=== PATIENT | male | born 1950 | race Caucasian/White ===

== ENCOUNTER 2022-11-05 15:56 | Inpatient (IN) ==
[2022-11-05] MEDS ORDERED: SODIUM CHLORIDE 0.9% 1,000 ML IV STA (16:55)
[2022-11-05] MEDS ORDERED: ONDANSETRON 4 MG/2 ML VIAL IV ONE (16:55)
[2022-11-05] MEDS ORDERED: MORPHINE 2 MG/1 ML SYRINGE IV ONE (16:55)
[2022-11-05] MEDS ORDERED: ALBUTEROL/IPRATROPIUM 3 ML NEB RESP TX STA (16:55)
[2022-11-05 17:14] LABS: Basophils # 0.1 10*3/uL (0.0-0.2); Basophils % 0.3 % (0.0-0.8); Eosinophils % 0.1 % (0.00-10.9); Hematocrit 34.2 VOL% (42.0-52.0); Hemoglobin 11.1 GM/DL (14.0-18.0); Immature Granulocytes % 1.9 %; Immature Granulocytes Absolute 0.38 #; Mean Corpuscular HGB Conc 32.5 GM/DL (32-36); Mean Corpuscular Volume 98.3 FL (87-102); Mean Platelet Volume 9.7 FL (9.6-12.0); Monocytes # 2.6 10*3/uL (0.11-0.8); Monocytes % 12.5 % (1.7-12.7); Neutrophils % 80.2 % (38.7-73.9); Platelet Count 412 T/CUMM (130-400); Red Blood Count 3.48 MC/CUMM (3.8-5.5); Red Cell Distribution Width 12.3 % (9.3-17.3); White Blood Count 20.4 T/CUMM (4-12)
[2022-11-05 17:19] LABS: Arterial Base Excess iSTAT 2 MMOL/L (-2.5-2.5); Arterial Bicarbonate iSTAT 27.8 MMOL/L (20-26); Arterial O2 Saturation iSTAT 90 % (95-100); Arterial PCO2 iSTAT 48 MM HG (35-48); Arterial PO2 iSTAT 61 MM HG (80-95); Arterial Total CO2 iSTAT 29 MMO/L (23-27); Arterial pH iSTAT 7.374 (7.35-7.45)
[2022-11-05 17:32] LABS: Alanine Aminotransferase 26 U/L (16-61); Albumin 2.7 G/DL (3.4-5.0); Alkaline Phosphatase 76 U/L (45-117); Aspartate Amino Transferase 34 U/L (0-37); Bilirubin,Total < 0.39 MG/DL (0.20-1.00); Blood Urea Nitrogen 23 MG/DL (7-18); Calcium 8.8 MG/DL (8.5-10.1); Carbon Dioxide 29 MMOL/L (21-32); Chloride 104 MMOL/L (98-107); Glucose 133 MG/DL (74-106); Potassium 4.3 MMOL/L (3.5-5.1); Sodium 136 MMOL/L (136-145); Total Protein 6.7 G/DL (6.4-8.2)
[2022-11-05 17:37] LABS: PT Patient Result 10.9 SECS (10.1-12.1)
[2022-11-05 18:01] LABS: Band Neutrophils 1 % (0-10); Lymphocytes 5 % (20-55); Total Cells Counted 100
[2022-11-05 18:02] LABS: Platelet Estimate Increased; Polychromasia Slight
[2022-11-05] MEDS ORDERED: cefTRIAXone 1,000 MG in SODIUM CHLORIDE 0.9% 100 ML IV STA (18:52)
[2022-11-05] MEDS ORDERED: AZITHROMYCIN INJ 500 MG in SODIUM CHLORIDE 0.9% 250 ML IV STA (18:52)
[2022-11-05] MEDS ORDERED: methylPREDNISolone SOD SUC 125 MG/2 ML VIAL IV STA (18:52)
[2022-11-05] MEDS: HEPARIN 5,000 UNIT/1 ML VIAL SUBCUT SCH (21:00)
[2022-11-05] MEDS: PANTOPRAZOLE 40 MG VIAL IV SCH (21:45)
[2022-11-06] MEDS: ALBUTEROL/IPRATROPIUM 3 ML NEB RESP TX SCH ×4 (00:55→19:05)
[2022-11-06] MEDS: methylPREDNISolone SOD SUC 40 MG/1 ML VIAL IV SCH ×4 (03:20→20:44)
[2022-11-06 05:16] LABS: Basophils % 0.3 % (0.0-0.8); Hematocrit 31.4 VOL% (42.0-52.0); Hemoglobin 10.1 GM/DL (14.0-18.0); Immature Granulocytes % 1.3 %; Immature Granulocytes Absolute 0.19 #; Lymphocytes # 0.4 10*3/uL (1.4-4.0); Lymphocytes % 2.8 % (21.2-54.2); Mean Corpuscular HGB Conc 32.2 GM/DL (32-36); Mean Corpuscular Volume 99.1 FL (87-102); Mean Platelet Volume 9.7 FL (9.6-12.0); Monocytes # 0.3 10*3/uL (0.11-0.8); Monocytes % 1.8 % (1.7-12.7); Neutrophils % 93.8 % (38.7-73.9); Platelet Count 381 T/CUMM (130-400); Red Blood Count 3.17 MC/CUMM (3.8-5.5); Red Cell Distribution Width 12.3 % (9.3-17.3); White Blood Count 14.2 T/CUMM (4-12)
[2022-11-06 05:35] LABS: Calcium 9.3 MG/DL (8.5-10.1); Osmolality,Calculated 286.3 MOS/KG (273-304); Potassium 4.6 MMOL/L (3.5-5.1)
[2022-11-06 05:58] LABS: Band Neutrophils 1 % (0-10); Lymphocytes 1 % (20-55); Platelet Estimate Adequate; Total Cells Counted 100
[2022-11-06] MEDS: HEPARIN 5,000 UNIT/1 ML VIAL SUBCUT SCH ×3 (06:57→20:46)
[2022-11-06] MEDS: SERTRALINE 50 MG TABLET PO SCH (08:59)
[2022-11-06] MEDS: PANTOPRAZOLE 40 MG VIAL IV SCH ×2 (08:59→20:43)
[2022-11-06] MEDS: DONEPEZIL 10 MG TABLET PO SCH (08:59)
[2022-11-06] MEDS ORDERED: ACETAMINOPHEN 325 MG TABLET PO PRN (10:57)
[2022-11-06] MEDS: LIDOCAINE 5% PATCH TRANSDERM SCH (11:17)
[2022-11-06] MEDS: ALPRAZolam 0.5 MG TABLET PO PRN (16:20)
[2022-11-06] MEDS: cefTRIAXone 1,000 MG in SODIUM CHLORIDE 0.9% 100 ML IV SCH (20:44)
[2022-11-07] MEDS: AZITHROMYCIN INJ 500 MG in SODIUM CHLORIDE 0.9% 250 ML IV SCH ×2 (00:18→23:07)
[2022-11-07] MEDS: ALBUTEROL/IPRATROPIUM 3 ML NEB RESP TX SCH ×4 (00:25→19:37)
[2022-11-07] MEDS: methylPREDNISolone SOD SUC 40 MG/1 ML VIAL IV SCH ×2 (01:19→08:37)
[2022-11-07] MEDS: HEPARIN 5,000 UNIT/1 ML VIAL SUBCUT SCH ×3 (05:00→22:19)
[2022-11-07 05:59] LABS: Basophils % 0.2 % (0.0-0.8); Hematocrit 31.2 VOL% (42.0-52.0); Hemoglobin 10.2 GM/DL (14.0-18.0); Immature Granulocytes % 1.7 %; Immature Granulocytes Absolute 0.45 #; Lymphocytes # 0.7 10*3/uL (1.4-4.0); Lymphocytes % 2.8 % (21.2-54.2); Mean Corpuscular HGB Conc 32.7 GM/DL (32-36); Mean Corpuscular Volume 98.1 FL (87-102); Mean Platelet Volume 9.6 FL (9.6-12.0); Monocytes # 0.7 10*3/uL (0.11-0.8); Monocytes % 2.8 % (1.7-12.7); Neutrophils % 92.5 % (38.7-73.9); Platelet Count 450 T/CUMM (130-400); Red Blood Count 3.18 MC/CUMM (3.8-5.5); Red Cell Distribution Width 12.2 % (9.3-17.3); White Blood Count 26.1 T/CUMM (4-12)
[2022-11-07 06:11] LABS: Calcium 9.5 MG/DL (8.5-10.1); Osmolality,Calculated 284.5 MOS/KG (273-304); Potassium 4.2 MMOL/L (3.5-5.1)
[2022-11-07 07:00] LABS: Band Neutrophils 1 % (0-10); Lymphocytes 1 % (20-55); Total Cells Counted 100
[2022-11-07] MEDS: SERTRALINE 50 MG TABLET PO SCH (08:38)
[2022-11-07] MEDS: LIDOCAINE 5% PATCH TRANSDERM SCH (08:38)
[2022-11-07] MEDS: DONEPEZIL 10 MG TABLET PO SCH (08:38)
[2022-11-07] MEDS: PANTOPRAZOLE 40 MG VIAL IV SCH ×2 (08:38→22:14)
[2022-11-07] MEDS: predniSONE 20 MG TABLET PO SCH (11:20)
[2022-11-07] MEDS: ALPRAZolam 0.5 MG TABLET PO PRN (15:22)
[2022-11-07] MEDS: cefTRIAXone 1,000 MG in SODIUM CHLORIDE 0.9% 100 ML IV SCH (22:13)
[2022-11-07] MEDS: ALPRAZolam 0.5 MG TABLET PO SCH (22:14)
[2022-11-08] MEDS: ALBUTEROL/IPRATROPIUM 3 ML NEB RESP TX SCH ×4 (00:30→20:00)
[2022-11-08 05:40] LABS: Basophils % 0.2 % (0.0-0.8); Hematocrit 29.4 VOL% (42.0-52.0); Hemoglobin 9.8 GM/DL (14.0-18.0); Immature Granulocytes % 3.2 %; Immature Granulocytes Absolute 0.68 #; Lymphocytes # 1.2 10*3/uL (1.4-4.0); Lymphocytes % 5.7 % (21.2-54.2); Mean Corpuscular HGB Conc 33.3 GM/DL (32-36); Mean Corpuscular Volume 96.1 FL (87-102); Mean Platelet Volume 9.9 FL (9.6-12.0); Monocytes % 4.5 % (1.7-12.7); Neutrophils % 86.4 % (38.7-73.9); Platelet Count 455 T/CUMM (130-400); Red Blood Count 3.06 MC/CUMM (3.8-5.5); Red Cell Distribution Width 12.3 % (9.3-17.3); White Blood Count 21.5 T/CUMM (4-12)
[2022-11-08 05:56] LABS: Calcium 8.8 MG/DL (8.5-10.1); Osmolality,Calculated 280.7 MOS/KG (273-304); Potassium 4.1 MMOL/L (3.5-5.1)
[2022-11-08] MEDS: HEPARIN 5,000 UNIT/1 ML VIAL SUBCUT SCH ×3 (06:06→21:19)
[2022-11-08 06:26] LABS: Lymphocytes 10 % (20-55); Platelet Estimate Increased; Total Cells Counted 100
[2022-11-08] MEDS: DONEPEZIL 10 MG TABLET PO SCH (10:12)
[2022-11-08] MEDS: ALPRAZolam 0.5 MG TABLET PO SCH ×3 (10:12→21:16)
[2022-11-08] MEDS: predniSONE 20 MG TABLET PO SCH (10:13)
[2022-11-08] MEDS: SERTRALINE 50 MG TABLET PO SCH (10:13)
[2022-11-08] MEDS: LIDOCAINE 5% PATCH TRANSDERM SCH (10:14)
[2022-11-08] MEDS: PANTOPRAZOLE 40 MG VIAL IV SCH ×2 (10:14→21:16)
[2022-11-08] MEDS: cefTRIAXone 1,000 MG in SODIUM CHLORIDE 0.9% 100 ML IV SCH (21:16)
[2022-11-08] MEDS: AZITHROMYCIN INJ 500 MG in SODIUM CHLORIDE 0.9% 250 ML IV SCH (21:35)
[2022-11-09] MEDS: ALBUTEROL/IPRATROPIUM 3 ML NEB RESP TX SCH ×3 (00:44→13:26)
[2022-11-09] MEDS: HEPARIN 5,000 UNIT/1 ML VIAL SUBCUT SCH ×2 (06:09→15:01)
[2022-11-09 06:36] LABS: Basophils # 0.1 10*3/uL (0.0-0.2); Basophils % 0.6 % (0.0-0.8); Eosinophils % 0.2 % (0.00-10.9); Hematocrit 32.7 VOL% (42.0-52.0); Hemoglobin 10.6 GM/DL (14.0-18.0); Immature Granulocytes % 9.1 %; Immature Granulocytes Absolute 1.23 #; Lymphocytes # 1.8 10*3/uL (1.4-4.0); Lymphocytes % 13.4 % (21.2-54.2); Mean Corpuscular HGB Conc 32.4 GM/DL (32-36); Mean Platelet Volume 9.5 FL (9.6-12.0); Monocytes # 0.9 10*3/uL (0.11-0.8); Monocytes % 6.3 % (1.7-12.7); Neutrophils % 70.4 % (38.7-73.9); Platelet Count 485 T/CUMM (130-400); Red Blood Count 3.37 MC/CUMM (3.8-5.5); Red Cell Distribution Width 12.5 % (9.3-17.3); White Blood Count 13.5 T/CUMM (4-12)
[2022-11-09 07:03] LABS: Lymphocytes 22 % (20-55); Total Cells Counted 100
[2022-11-09 07:04] LABS: Platelet Estimate Increased
[2022-11-09] MEDS: LIDOCAINE 5% PATCH TRANSDERM SCH (10:11)
[2022-11-09] MEDS: ALPRAZolam 0.5 MG TABLET PO SCH ×2 (10:12→15:00)
[2022-11-09] MEDS: DONEPEZIL 10 MG TABLET PO SCH (10:12)
[2022-11-09] MEDS: PANTOPRAZOLE 40 MG VIAL IV SCH (10:13)
[2022-11-09] MEDS: predniSONE 20 MG TABLET PO SCH (10:13)
[2022-11-09] MEDS: SERTRALINE 50 MG TABLET PO SCH (10:13)
[2022-11-09 11:55] VITALS: BP 116/63
== END 2022-11-09 15:30 | disposition home or self-care (01) | DRG 193 ==
LOC: N.ED 15:56 → N.EDINP 19:53 → SUATTDRO 19:53 → N.3E 21:53
PROVIDERS: ADMIT Internal Medicine; ATTEND Family Medicine